=== PATIENT | male | born 1945 | race Caucasian/White ===

== ENCOUNTER 2022-01-19 11:29 | Observation (INO) ==
[2022-01-19] MEDS ORDERED: SODIUM CHLORIDE 0.9% 1,000 ML IV STA (12:00)
[2022-01-19] MEDS ORDERED: ONDANSETRON 4 MG/2 ML VIAL IV STA (12:00)
[2022-01-19 12:07] LABS: Basophils % 0.2 % (0.0-0.8); Eosinophils # 0.1 10*3/uL (0.0-0.87); Eosinophils % 0.6 % (0.00-10.9); Hematocrit 40.8 VOL% (42.0-52.0); Hemoglobin 13.3 GM/DL (14.0-18.0); Immature Granulocytes % 0.7 %; Immature Granulocytes Absolute 0.06 #; Lymphocytes % 11.9 % (21.2-54.2); Mean Corpuscular HGB Conc 32.6 GM/DL (32-36); Mean Corpuscular Volume 91.3 FL (87-102); Mean Platelet Volume 9.5 FL (9.6-12.0); Monocytes # 0.5 10*3/uL (0.11-0.8); Neutrophils % 80.6 % (38.7-73.9); Platelet Count 194 T/CUMM (130-400); Red Blood Count 4.47 MC/CUMM (3.8-5.5); Red Cell Distribution Width 12.6 % (9.3-17.3); White Blood Count 8.4 T/CUMM (4-12)
[2022-01-19 12:14] LABS: PT Patient Result 10.7 SECS (10.1-12.1); Partial Thromboplastin Time 29.1 SECS (23.7-32.9)
[2022-01-19 12:25] LABS: Albumin 3.5 G/DL (3.4-5.0); Bilirubin,Total 0.4 MG/DL (0.20-1.00); Calcium 9.2 MG/DL (8.5-10.1); Potassium 4.2 MMOL/L (3.5-5.1); Total Protein 7.6 G/DL (6.4-8.2)
[2022-01-19] MEDS ORDERED: metroNIDAZOLE INJ 500 MG/100 ML PREMIX IV STA (13:36)
[2022-01-19] MEDS ORDERED: CIPROFLOXACIN INJ 400 MG/200 ML PREMIX IV STA (13:36)
[2022-01-19 13:46] LABS: Mucus,Urine Occasional /LPF (Occasional); RBC,Urine 1 /HPF (0-4)
[2022-01-19] MEDS ORDERED: MORPHINE 2 MG/1 ML SYRINGE IV STA (13:46)
[2022-01-19 13:51] LABS: Bilirubin,Urine Negative (Negative); Blood, Urine Negative (Negative); Glucose,Urine (UA) Negative (Negative); Ketones,Urine Negative (Negative); Nitrite,Urine Negative (Negative); Protein,Urine Negative (Negative); Urine Appearance Clear (Clear); Urine Color Yellow (Yellow); Urine Specific Gravity 1.015 (1.001-1.035); Urine pH 7.5 (4.5-8.0)
[2022-01-19 13:52] LABS: Urine Urobilinogen < 2.0 eU/dL (<2.0)
[2022-01-19] MEDS ORDERED: GLUCAGON 1 MG VIAL IM PRN (14:28)
[2022-01-19] MEDS ORDERED: SIMETHICONE CHEW 125 MG TABLET PO PRN (14:28)
[2022-01-19] MEDS ORDERED: ALUMINUM/MAGNES/SIMETH MAX STR 30 ML UDCUP PO PRN (14:28)
[2022-01-19] MEDS ORDERED: hydrALAZINE 20 MG/1 ML VIAL IV PRN (14:28)
[2022-01-19] MEDS ORDERED: ONDANSETRON 4 MG/2 ML VIAL IV PRN (14:28)
[2022-01-19] MEDS ORDERED: CALCIUM CARBONATE CHEW 500 MG TABLET PO PRN (14:28)
[2022-01-19] MEDS ORDERED: ENOXAPARIN 40 MG/0.4 ML SYRINGE SUBCUT SCH (14:30)
[2022-01-19] MEDS ORDERED: DEXTROSE 10% 250 ML BAG IV PRN (14:34)
[2022-01-19] MEDS ORDERED: MORPHINE 2 MG/1 ML SYRINGE IV PRN (14:45)
[2022-01-19] MEDS: LACTATED RINGERS 1,000 ML IV SCH (14:45)
[2022-01-19] MEDS ORDERED: amLODIPine 5 MG TABLET PO STA (14:50)
[2022-01-19] MEDS: lisinopriL 20 MG TABLET PO SCH ×2 (15:15→20:28)
[2022-01-19] MEDS: ASCORBIC ACID 500 MG TABLET PO SCH (20:27)
[2022-01-19] MEDS: SIMVASTATIN 20 MG TABLET PO SCH (20:28)
[2022-01-19] MEDS: GABAPENTIN 300 MG CAPSULE PO SCH (20:28)
[2022-01-19] MEDS: METOPROLOL TARTRATE 50 MG TABLET PO SCH (20:28)
[2022-01-19] MEDS: FAMOTIDINE 20 MG TABLET PO SCH (20:28)
[2022-01-19] MEDS: metroNIDAZOLE INJ 500 MG/100 ML PREMIX IV SCH (20:29)
[2022-01-20] MEDS: CIPROFLOXACIN INJ 400 MG/200 ML PREMIX IV SCH ×2 (02:45→15:46)
[2022-01-20] MEDS: metroNIDAZOLE INJ 500 MG/100 ML PREMIX IV SCH ×2 (05:08→12:40)
[2022-01-20] MEDS: LACTATED RINGERS 1,000 ML IV SCH ×2 (05:08→22:01)
[2022-01-20 05:29] LABS: Basophils % 0.2 % (0.0-0.8); Eosinophils % 0.5 % (0.00-10.9); Hematocrit 41.5 VOL% (42.0-52.0); Hemoglobin 13.6 GM/DL (14.0-18.0); Immature Granulocytes % 1.6 %; Immature Granulocytes Absolute 0.14 #; Lymphocytes # 1.2 10*3/uL (1.4-4.0); Mean Corpuscular HGB Conc 32.8 GM/DL (32-36); Mean Corpuscular Volume 90.4 FL (87-102); Mean Platelet Volume 9.7 FL (9.6-12.0); Monocytes # 0.7 10*3/uL (0.11-0.8); Monocytes % 7.3 % (1.7-12.7); Neutrophils % 77.4 % (38.7-73.9); Platelet Count 209 T/CUMM (130-400); Red Blood Count 4.59 MC/CUMM (3.8-5.5); Red Cell Distribution Width 12.8 % (9.3-17.3); White Blood Count 8.9 T/CUMM (4-12)
[2022-01-20 05:45] LABS: Ferritin 49.3 ng/mL (26-388)
[2022-01-20 05:49] LABS: Alanine Aminotransferase 13 U/L (16-61); Alkaline Phosphatase 87 U/L (45-117); Aspartate Amino Transferase 9 U/L (0-37); Bilirubin,Total < 0.39 MG/DL (0.20-1.00); Blood Urea Nitrogen 7 MG/DL (7-18); Calcium 9.1 MG/DL (8.5-10.1); Carbon Dioxide 28 MMOL/L (21-32); Chloride 101 MMOL/L (98-107); Cholesterol 160 MG/DL (50-200); Glucose 145 MG/DL (74-106); HDL Cholesterol 53 MG/DL (40-60); Osmolality,Calculated 270.1 MOS/KG (273-304); Potassium 3.8 MMOL/L (3.5-5.1); Risk Ratio 3.02; Sodium 135 MMOL/L (136-145); Total Protein 6.7 G/DL (6.4-8.2); Triglycerides 156 MG/DL (2-150); VLDL Cholesterol 31.2 MG/DL
[2022-01-20] MEDS ORDERED: [UNRECOGNIZED DRUG - OTHER] PO SCH (09:00)
[2022-01-20] MEDS ORDERED: ASPIRIN EC 325 MG TABLET PO SCH (09:00)
[2022-01-20] MEDS ORDERED: PANTOPRAZOLE 40 MG TABLET PO SCH (09:00)
[2022-01-20] MEDS ORDERED: CHOLECALCIFEROL PO SCH (09:00)
[2022-01-20] MEDS: CHOLECALCIFEROL 1,000 UNIT TABLET PO SCH (09:47)
[2022-01-20] MEDS: buPROPion XL 150 MG TABLET PO SCH (09:47)
[2022-01-20] MEDS: GABAPENTIN 300 MG CAPSULE PO SCH ×2 (09:48→21:45)
[2022-01-20] MEDS: CETIRIZINE 10 MG TABLET PO SCH (09:48)
[2022-01-20] MEDS: ZINC GLUCONATE 50 MG TABLET PO SCH (09:48)
[2022-01-20] MEDS: ASCORBIC ACID 500 MG TABLET PO SCH ×2 (09:48→21:45)
[2022-01-20] MEDS: FAMOTIDINE 20 MG TABLET PO SCH ×2 (09:48→21:45)
[2022-01-20] MEDS: lisinopriL 20 MG TABLET PO SCH ×2 (09:48→21:45)
[2022-01-20] MEDS: PRAMIPEXOLE 0.25 MG TABLET PO SCH ×3 (09:48→21:45)
[2022-01-20] MEDS: FLUTICASONE 50 MCG NASAL SPRAY 16 GM BOTTLE BOTH NARES SCH (09:49)
[2022-01-20] MEDS ORDERED: AMITRIPTYLINE 25 MG TABLET PO SCH (21:00)
[2022-01-20] MEDS ORDERED: traZODone 50 MG TABLET PO SCH (21:00)
[2022-01-20] MEDS: SIMVASTATIN 20 MG TABLET PO SCH (21:45)
[2022-01-21 05:53] LABS: Basophils % 0.3 % (0.0-0.8); Eosinophils # 0.1 10*3/uL (0.0-0.87); Eosinophils % 1.5 % (0.00-10.9); Hematocrit 37.8 VOL% (42.0-52.0); Immature Granulocytes % 0.3 %; Immature Granulocytes Absolute 0.02 #; Lymphocytes # 1.5 10*3/uL (1.4-4.0); Lymphocytes % 26.1 % (21.2-54.2); Mean Corpuscular HGB Conc 31.7 GM/DL (32-36); Mean Corpuscular Volume 91.7 FL (87-102); Mean Platelet Volume 9.4 FL (9.6-12.0); Monocytes # 0.6 10*3/uL (0.11-0.8); Neutrophils % 61.8 % (38.7-73.9); Platelet Count 152 T/CUMM (130-400); Red Blood Count 4.12 MC/CUMM (3.8-5.5); White Blood Count 5.8 T/CUMM (4-12)
[2022-01-21 06:01] LABS: PT Patient Result 11.3 SECS (10.1-12.1)
[2022-01-21 06:15] LABS: Albumin 2.9 G/DL (3.4-5.0); Bilirubin,Total 0.4 MG/DL (0.20-1.00); Calcium 9.3 MG/DL (8.5-10.1); Osmolality,Calculated 275.7 MOS/KG (273-304); Potassium 3.6 MMOL/L (3.5-5.1); Total Protein 6.1 G/DL (6.4-8.2)
[2022-01-21 08:33] VITALS: BP 129/69
[2022-01-21] MEDS: PRAMIPEXOLE 0.25 MG TABLET PO SCH (09:40)
[2022-01-21] MEDS: GABAPENTIN 300 MG CAPSULE PO SCH (09:40)
[2022-01-21] MEDS: METOPROLOL TARTRATE 50 MG TABLET PO SCH (09:41)
[2022-01-21] MEDS: buPROPion XL 150 MG TABLET PO SCH (09:41)
[2022-01-21] MEDS: ZINC GLUCONATE 50 MG TABLET PO SCH (09:41)
[2022-01-21] MEDS: lisinopriL 20 MG TABLET PO SCH (09:41)
[2022-01-21] MEDS: CHOLECALCIFEROL 1,000 UNIT TABLET PO SCH (09:41)
[2022-01-21] MEDS: CETIRIZINE 10 MG TABLET PO SCH (09:41)
[2022-01-21] MEDS: FAMOTIDINE 20 MG TABLET PO SCH (09:41)
[2022-01-21] MEDS: ASCORBIC ACID 500 MG TABLET PO SCH (09:49)
[2022-01-21] MEDS: FLUTICASONE 50 MCG NASAL SPRAY 16 GM BOTTLE BOTH NARES SCH (09:54)
== END 2022-01-21 11:10 | disposition home or self-care (01) ==
LOC: N.EDINP 11:29 → N.ED 11:29 → SUATTDRO 14:28 → N.5E 15:35
PROVIDERS: ADMIT Internal Medicine; ATTEND Internal Medicine